=== PATIENT | female | born 1945 | race Caucasian/White ===

== ENCOUNTER 2017-03-25 12:14 | Inpatient (IN) | payer OTHER, MEDICARE ==
[2017-03-25 12:23] VITALS: BMI 24.7
--- NOTE | 2017-03-25 12:30 | DR.GENAD ---
HPI - PCP Primary Care Physician: MORENA Jin FNP - HPI Comment HPI Comment: PATIENT HAVE ABDOMINAL PAIN FOR SEVERAL MONTHS. GOT WORSE. PCP OFFICE TOOK XRAY. IT WAS ABNORMAL. HERE FOR FURTHER EVALUATION. HAVE LOW GRADE FEVER. LOWER BACK PAIN ALSO REPORTED. - Complaint/Symptoms Chief Complaint Doctors Comments: ABDOMINAL PAIN. Chief Complaint:: PT STATES " MORENA Jin CALLED HER AND TOLD HER TO COME TO ER AND BE EVALUATED DUE TO HER XRAY REPORT". Self Treatment fo Chief Complaint: PT STATES "I HAS BEEN BATTLING CONSTIPATION SINCE APRIL AND PT WAS PLACED ON MEDS FOR THIS.. AND THAT PATRICIA TOLD ME I MIGHT HAVE A BLOCKAGE ". - Nurses notes reviewed Nurses Notes Review: Yes - Source History Provided: Patient - Mode of Arrival Mode of Arrival: Ambulatory - Timing Onset of Chief Complaint: 12/16/16 Came on: Suddenly - Duration Duration: Constant Duration: Days - Severity Severity: Moderate PMH - PMH Past Medical History: Yes Past Medical History: Dyslipidemia, Hypertension Past Surgical History: Yes Past Surgical History Comment: SPLEENECTOMY. - Family History History of Family Medical Conditions: No - Social History Does patient currently use any type of tobacco product: No Have you used tobacco products in the last 12 months: No Type of Tobacco Use: None Does any household member use tobacco: No Alcohol Use: None Do you use any recreational Drugs:: No Lives With: Family Lives Where: Home - infectious screening In the last 2 months have you had wt loss of >10#?: NO Have you had fever, night sweats or hemotysis?: No Have you traveled outside the country in the last 6 months?: No Isolation: Standard ROS - Review of Systems Constitutional: Chills, Weakness, Fatigue. negative: Diaphoresis, Fever Eyes: No Symptoms Reported ENTM: No Symptoms Reported Respiratoy: No Symptoms Reported Cardiovascular: No Symptoms Reported Gastrointestinal/Abdominal: Abdominal Pain, Constipation, Nausea Neurological: No Symptoms Reported Musculoskeletal: No Symptoms Reported Integumentary: No Symptoms Reported Hematologic/Lymphatic: No Symptoms Reported Endocrine: No Symptoms Reported All Other Systems: Reviewed and Negative PE - Vital Signs Vitals: Temperature 97.9 F Pulse Rate 88 Respiratory Rate 20 Blood Pressure 126/63 O2 Sat by Pulse Oximetry 93 - General Limitations: No Limitations General Appearance: Alert - Head Head Exam: Normal Inspection - Eyes Eye exam: Normal Appearance ( ), PERRL, EOMI - ENT ENT Exam: Normal External Ear Exam TM/Canal Exam: Bilateral Normal Nose Exam: Normal Nose Exam Mouth Exam: Normal Inspection Throat Exam: Normal Inspection - Neck Neck Exam: Trachea Midline - Chest Chest Inspection: Symmetric Chest Wall Rise - Respiratory Respiratory Exam: Normal Lung Sounds Bilat Respiratory Exam: Bilateral Clear to Auscultation - Cardiovascular Cardiovascular Exam: Normal Rhythm - Abdominal Exam Abdominal Exam: Normal Bowel Sounds Abdominal Tenderness: Diffuse, Moderate - Extremities Extremities Exam: Edema - Back Back Exam: Normal Inspection, (R) CVA Tenderness - Neurologic Neurological Exam: Alert, Oriented X3 - Psychiatric Psychiatric Exam: Normal Affect, Normal Mood - Skin Skin Exam: Normal Color MDM - Additional Information Findings: ABDOMINAL PAIN, BOWEL OBSTRUCTION, UTI, KIDNEY STONE, DIVERTICULITIS Course - Treatment Treatment: SEE ORDERS. - Consultation Consultation Comments: DISCUSS PATIENT WITH DR. WINKLER. HE WILL ADMIT PATIENT. - Education/Counseling Education/Counseling: Patient, Family, Education Educated On: Treatment, Diagnosis, Needs for Follow Up ROR - Labs Reviewed Laboratory Results Reviewed?: Yes Result Diagrams: 03/26/17 04:05 03/26/17 04:05 Laboratory: WBC 9.8 X10^3/uL (3.6-10.0) 03/25/17 12:52 RBC 4.55 X10^6/uL (3.5-5.4) 03/25/17 12:52 Hgb 13.1 g/dL (12.0-16.0) 03/25/17 12:52 Hct 38.3 % (36.0-47.0) 03/25/17 12:52 MCV 84.2 fL (80.0-100.0) 03/25/17 12:52 MCH 28.7 pg (27.0-34.0) 03/25/17 12:52 MCHC 34.1 g/dL (33.0-35.0) 03/25/17 12:52 RDW 13.1 % (11.6-16.5) 03/25/17 12:52 Plt Count 580 X10^3/uL (150.0-450.0) H 03/25/17 12:52 MPV 9.4 fL (7.4-11.0) 03/25/17 12:52 Neut % 67.1 % (42.0-75.0) 03/25/17 12:52 Lymph % 17.5 % (21.0-51.0) L 03/25/17 12:52 [place] % 13.4 % (0.0-13.0) H 03/25/17 12:52 Eos % 1.2 % (0.9-2.9) 03/25/17 12:52 Baso % 0.8 % (0.2-1.0) 03/25/17 12:52 Neut # 6.6 x10^3/uL (2.2-4.8) H 03/25/17 12:52 Lymph # 1.7 X10^3/uL (1.3-2.9) 03/25/17 12:52 [place] # 1.3 x10^3/uL (0.3-0.8) H 03/25/17 12:52 Eos # 0.1 x10^3/uL (0.0-0.2) 03/25/17 12:52 Baso # 0.1 X10^3/uL (0.0-0.1) 03/25/17 12:52 Absolute Nucleated RBC 0.1 /100WBC 03/25/17 12:52 Sodium 139 mmol/L (136-145) 03/25/17 12:52 Corrected Sodium 140 mmol/L (136-145) 03/25/17 12:52 Potassium 3.1 mmol/L (3.5-5.1) L 03/25/17 12:52 Chloride 102 mmol/L (98-107) 03/25/17 12:52 Carbon Dioxide 29.3 mmol/L (21-32) 03/25/17 12:52 BUN 22 mg/dL (7-18) H 03/25/17 12:52 Creatinine 1.26 mg/dL (0.55-1.02) H 03/25/17 12:52 Est GFR (MDRD) Af Amer 54 (>60) L 03/25/17 12:52 Est GFR (MDRD) Non-Af 44 (>60) L 03/25/17 12:52 Glucose 126 mg/dL (65-99) H 03/25/17 12:52 Calcium 9.3 mg/dL (8.5-10.1) 03/25/17 12:52 Corrected Calcium TNP 03/25/17 12:52 Total Bilirubin 0.30 mg/dL (0.2-1.0) 03/25/17 12:52 AST 27 Units/L (15-37) 03/25/17 12:52 ALT 27 Units/L (12-78) 03/25/17 12:52 Alkaline Phosphatase 73 Units/L (46-116) 03/25/17 12:52 Total Protein 7.5 g/dL (6.4-8.2) 03/25/17 12:52 Albumin 3.4 g/dL (3.4-5.0) 03/25/17 12:52 Globulin 4.1 g/dL (2.5-4.5) 03/25/17 12:52 Albumin/Globulin Ratio 0.8 Ratio (1.1-2.1) L 03/25/17 12:52 Amylase 35 Units/L (25-115) 03/25/17 12:52 Lipase 185 Units/L (73-393) 03/25/17 12:52 H. pylori IgG Antibody Positive (NEGATIVE) A 03/25/17 12:52 - XRAY XRAY Findings: REPORT DISCUSS WITH PATIENT. - Diagnosis Discharge Problem: Partial small bowel obstruction Abdominal pain Qualifiers: Abdominal location: generalized Qualified Code(s): R10.84 - Generalized abdominal pain - Discharge Plan Disposition: ADMITTED INPATIENT Condition: Stable - Follow ups/Referrals - Instructions
[2017-03-25] MEDS ORDERED: NS 1000 ML 1,000 ML ONE ×2 (12:53→15:33)
[2017-03-25] MEDS ORDERED: NS 1000 ML 1,000 ML IV SCH ×2 (13:00→15:00)
[2017-03-25 13:01] LABS: BASOPHILS # (AUTO) 0.1 X10^3/uL (0.0-0.1); BASOPHILS % (AUTO) 0.8 % (0.2-1.0); EOSINOPHILS # (AUTO) 0.1 x10^3/uL (0.0-0.2); EOSINOPHILS % (AUTO) 1.2 % (0.9-2.9); HEMATOCRIT 38.3 % (36.0-47.0); HEMOGLOBIN 13.1 g/dL (12.0-16.0); LYMPHOCYTES # (AUTO) 1.7 X10^3/uL (1.3-2.9); LYMPHOCYTES % (AUTO) 17.5 % (21.0-51.0); MEAN CORPUSCULAR HEMOGLOBIN 28.7 pg (27.0-34.0); MEAN CORPUSCULAR HGB CONC 34.1 g/dL (33.0-35.0); MEAN CORPUSCULAR VOLUME 84.2 fL (80.0-100.0); MEAN PLATELET VOLUME 9.4 fL (7.4-11.0); MONOCYTES # (AUTO) 1.3 x10^3/uL (0.3-0.8); MONOCYTES % (AUTO) 13.4 % (0.0-13.0); NEUTROPHILS # (AUTO) 6.6 x10^3/uL (2.2-4.8); NEUTROPHILS % (AUTO) 67.1 % (42.0-75.0); PLATELET COUNT 580 X10^3/uL (150.0-450.0); RED BLOOD COUNT 4.55 X10^6/uL (3.5-5.4); RED CELL DISTRIBUTION WIDTH 13.1 % (11.6-16.5); WHITE BLOOD COUNT 9.8 X10^3/uL (3.6-10.0)
[2017-03-25 13:11] LABS: ALANINE AMINOTRANSFERASE 27 Units/L (12-78); ALBUMIN 3.4 g/dL (3.4-5.0); ALKALINE PHOSPHATASE 73 Units/L (46-116); AMYLASE 35 Units/L (25-115); ASPARTATE AMINO TRANSFERASE 27 Units/L (15-37); BLOOD UREA NITROGEN 22 mg/dL (7-18); CALCIUM 9.3 mg/dL (8.5-10.1); CARBON DIOXIDE 29.3 mmol/L (21-32); CHLORIDE 102 mmol/L (98-107); COR NA(FOR HYPERGLY) 140 mmol/L (136-145); CREATININE 1.26 mg/dL (0.55-1.02); LIPASE 185 Units/L (73-393); SODIUM 139 mmol/L (136-145); TOTAL PROTEIN 7.5 g/dL (6.4-8.2); eGFR BLACK RACES 54 (>60); eGFR NON BLACK RACES 44 (>60)
--- NOTE | 2017-03-25 13:51 | CT ---
History: Abdominal pain and distention with nausea and vomiting for 3 days Study: CT of the abdomen and pelvis without contrast. Sagittal and coronal reformations were provided . Comparison: None Findings: The visualized lung bases are grossly clear of disease. The spleen and gallbladder are surg ically absent. The liver and pancreas and kidneys and adrenal glands are unremarkable. No adenopathy or significant free fluid is demonstrated. The colon is full of fecal material. There is mild diffuse gaseous distention of small bowel up to 3 cm. Distal ileum is small in caliber. There is no free air . There is severe degenerative changes in the lumbar spine diffusely and there is prominent posterior ridging at L1-2. There is pectus excavatum. The uterus is apparently surgically absent. Impression: Findings suggest distal partial small bowel obstruction Reported By:
[2017-03-25] MEDS ORDERED: NS + KCL 20 MEQ/L 1,000 ML IV SCH (14:00)
[2017-03-25] MEDS ORDERED: DEMEROL INJ IVP ONE (14:33)
[2017-03-25] MEDS ORDERED: ZOFRAN INJ 4 MG VIAL IVP ONE (14:37)
[2017-03-25] MEDS ORDERED: DEMEROL INJ ONE (14:38)
[2017-03-25] MEDS ORDERED: ZOFRAN INJ 4 MG VIAL ONE (14:38)
[2017-03-25 15:11] LABS: BILIRUBIN,URINE 1+ (NEGATIVE); BLOOD/HEMOGLOBIN,URINE 1+ (NEGATIVE); GLUCOSE, URINE NEGATIVE (NEGATIVE); KETONES,URINE NEGATIVE (NEGATIVE); LEUKOCYTE ESTERASE ,URINE 1+ (NEGATIVE); NITRITES,URINE POSITIVE (NEGATIVE); PROTEIN,URINE 1+ (NEGATIVE); UROBILINOGEN,URINE 2+ (NORMAL)
[2017-03-25] MEDS ORDERED: PEPCID 20 MG IV PREMIX* 20 MG/50 ML BAG IV ONE ×2 (15:19→15:47)
[2017-03-25 15:25] LABS: APPEARANCE,URINE HAZY (CLEAR); BACTERIA,URINE 3+ /HPF (NEGATIVE); COLOR,URINE YELLOW (YELLOW); SQUAMOUS EPITHELIAL CELL,UR RARE /HPF (NEGATIVE)
--- NOTE | 2017-03-25 15:43 | RAD ---
HISTORY: NG tube placement. Study: KUB. Comparison: CT abdomen/pelvis dated same day. Findings: Interval placement of a nasogastric tube whose tip overlies the expected area of the stomach. Bowel g as pattern appears unchanged given technique. No obvious free air. No pathological soft tissue mass o r calcification can be observed. The bony structures are grossly intact. IMPRESSION: 1. NG tube that appears to be in good position. 2. No significant change in bowel gas pattern. Reported By:
[2017-03-25] MEDS ORDERED: LEVAQUIN PREMIX IV 500 MG 500 MG/100 ML BAG IV ONE (15:54)
[2017-03-25] MEDS ORDERED: LEVAQUIN PREMIX IV 500 MG 500 MG/100 ML BAG IV SCH (16:00)
[2017-03-25] MEDS ORDERED: LEVAQUIN TAB 500 MG PO SCH (16:00)
[2017-03-25] MEDS: DEMEROL INJ IVP PRN (18:33)
[2017-03-25] MEDS: PHENERGAN INJ 25 MG IVP PRN (18:40)
[2017-03-25] MEDS: PEPCID 20 MG IV PREMIX* 20 MG/50 ML BAG IV SCH (20:34)
[2017-03-26] MEDS: NS 1000 ML 1,000 ML IV SCH ×2 (00:26→04:41)
[2017-03-26] MEDS: DEMEROL INJ IVP PRN ×4 (04:45→23:04)
[2017-03-26] MEDS: PHENERGAN INJ 25 MG IVP PRN ×3 (04:46→17:57)
[2017-03-26 05:35] LABS: BASOPHILS % (AUTO) 0.4 % (0.2-1.0); EOSINOPHILS # (AUTO) 0.2 x10^3/uL (0.0-0.2); EOSINOPHILS % (AUTO) 1.7 % (0.9-2.9); HEMATOCRIT 34.3 % (36.0-47.0); HEMOGLOBIN 11.5 g/dL (12.0-16.0); LYMPHOCYTES # (AUTO) 1.9 X10^3/uL (1.3-2.9); LYMPHOCYTES % (AUTO) 15.8 % (21.0-51.0); MEAN CORPUSCULAR HEMOGLOBIN 28.3 pg (27.0-34.0); MEAN CORPUSCULAR HGB CONC 33.5 g/dL (33.0-35.0); MEAN CORPUSCULAR VOLUME 84.5 fL (80.0-100.0); MONOCYTES # (AUTO) 1.3 x10^3/uL (0.3-0.8); MONOCYTES % (AUTO) 10.6 % (0.0-13.0); NEUTROPHILS # (AUTO) 8.6 x10^3/uL (2.2-4.8); NEUTROPHILS % (AUTO) 71.5 % (42.0-75.0); PLATELET COUNT 523 X10^3/uL (150.0-450.0); RED BLOOD COUNT 4.05 X10^6/uL (3.5-5.4); RED CELL DISTRIBUTION WIDTH 13.1 % (11.6-16.5)
[2017-03-26 05:42] LABS: ALANINE AMINOTRANSFERASE 20 Units/L (12-78); ALBUMIN 2.7 g/dL (3.4-5.0); ALKALINE PHOSPHATASE 58 Units/L (46-116); ASPARTATE AMINO TRANSFERASE 17 Units/L (15-37); BLOOD UREA NITROGEN 18 mg/dL (7-18); CALCIUM 8.2 mg/dL (8.5-10.1); CARBON DIOXIDE 23.9 mmol/L (21-32); CHLORIDE 108 mmol/L (98-107); COR CA(FOR HYPOALB) 9.2 mg/dL (8.5-10.1); CREATININE 0.92 mg/dL (0.55-1.02); SODIUM 142 mmol/L (136-145); TOTAL PROTEIN 5.9 g/dL (6.4-8.2); eGFR BLACK RACES > 60 (>60); eGFR NON BLACK RACES > 60 (>60)
[2017-03-26] MEDS ORDERED: POTASSIUM CHL 40 MEQ/NS 0.45% 500 ML IV PRN (07:52)
[2017-03-26] MEDS ORDERED: POTASSIUM CHLORIDE LIQ 20 MEQ UDC PO PRN (07:52)
[2017-03-26] MEDS ORDERED: POTASSIUM CHL 60 MEQ/NS 0.45% 500 ML IV PRN (07:52)
[2017-03-26] MEDS ORDERED: K-LYTE EFFERVESCENT PO PRN (07:52)
[2017-03-26] MEDS: PEPCID 20 MG IV PREMIX* 20 MG/50 ML BAG IV SCH ×2 (08:13→20:40)
[2017-03-26] MEDS: MAGNESIUM SULFATE 1 GM/100 mL PREMIX 1 GM/100 ML BAG IV PRN ×2 (09:32→10:44)
[2017-03-26] MEDS: CIPRO IV 400 MG PREMIX* 400 MG/200 ML IV.SOLN. IV SCH ×2 (11:57→20:40)
--- NOTE | 2017-03-26 15:33 | DR.UPDATE ---
H&P Update History and Physical Update: History and Physical reviewed and patient examined. H&P COMPLETED ON 03/25/2017 WITHOUT CHANGE Changes noted: NO Yes with the following:
--- NOTE | 2017-03-26 15:36 | PCM.PROG ---
Progress Note - Progress Note for Day of Date: 03/26/17 - Subjective Subjective: patient is a 71-year-old white female who is admitted late yesterday evening with a small bowel obstruction. Patient has NG tube at low intermittent suction. Patient continues to complain of abdominal pain and nausea. Plan to continue nothing by mouth status continue with NG tube, pain and nausea control, PPI therapy,, repeat a.m. labs and abdomen series - Past Medical Family Social History Past Med/Fam/Surg Hx: No changes since H&P Allergies: Allergies codeine Allergy (Verified 03/25/17 12:16) penicillin G Allergy (Verified 03/25/17 12:16) - Review of Systems ROS: No change since H&P - Vital Signs and I&O's Vital Signs: Temperature 98.1 F Pulse Rate [Left] 96 Pulse Rate [Right Brachial] 73 Pulse Rate 88 Respiratory Rate 18 Blood Pressure [Left Arm] 149/70 Blood Pressure 126/63 O2 Sat by Pulse Oximetry 96 Intake and Output: Intake & Output 03/24/17 03/25/17 03/26/17 03/27/17 11:59 11:59 11:59 11:59 Intake Total 480 Balance 480 - Physical Exam Oriented: Normal Eyes: Normal Ear: Normal Throat: Normal Respiratory: Normal Cardiovascular: Normal Auscultation: Bowel Sounds: Decreased Tenderness: Diffuse Skin: Decreased Turgur Musculoskeletal: Normal Affect: Anxious Speech Pattern: Clear, Appropriate - Laboratory and Diagnostics Result Diagrams: 03/26/17 04:05 03/26/17 04:05 Labs: 03/25/17 14:46 Urine,Clean Catch Urine Culture - Preliminary Laboratory WBC 12.0 X10^3/uL (3.6-10.0) H 03/26/17 04:05 RBC 4.05 X10^6/uL (3.5-5.4) 03/26/17 04:05 Hgb 11.5 g/dL (12.0-16.0) L 03/26/17 04:05 Hct 34.3 % (36.0-47.0) L 03/26/17 04:05 MCV 84.5 fL (80.0-100.0) 03/26/17 04:05 MCH 28.3 pg (27.0-34.0) 03/26/17 04:05 MCHC 33.5 g/dL (33.0-35.0) 03/26/17 04:05 RDW 13.1 % (11.6-16.5) 03/26/17 04:05 Plt Count 523 X10^3/uL (150.0-450.0) H 03/26/17 04:05 MPV 10.0 fL (7.4-11.0) 03/26/17 04:05 Neut % 71.5 % (42.0-75.0) 03/26/17 04:05 Lymph % 15.8 % (21.0-51.0) L 03/26/17 04:05 [place] % 10.6 % (0.0-13.0) 03/26/17 04:05 Eos % 1.7 % (0.9-2.9) 03/26/17 04:05 Baso % 0.4 % (0.2-1.0) 03/26/17 04:05 Neut # 8.6 x10^3/uL (2.2-4.8) H 03/26/17 04:05 Lymph # 1.9 X10^3/uL (1.3-2.9) 03/26/17 04:05 [place] # 1.3 x10^3/uL (0.3-0.8) H 03/26/17 04:05 Eos # 0.2 x10^3/uL (0.0-0.2) 03/26/17 04:05 Baso # 0.0 X10^3/uL (0.0-0.1) 03/26/17 04:05 Absolute Nucleated RBC 0.1 /100WBC 03/26/17 04:05 Sodium 142 mmol/L (136-145) 03/26/17 04:05 Corrected Sodium TNP 03/26/17 04:05 Potassium 3.3 mmol/L (3.5-5.1) L 03/26/17 04:05 Chloride 108 mmol/L (98-107) H 03/26/17 04:05 Carbon Dioxide 23.9 mmol/L (21-32) 03/26/17 04:05 BUN 18 mg/dL (7-18) 03/26/17 04:05 Creatinine 0.92 mg/dL (0.55-1.02) 03/26/17 04:05 Est GFR (MDRD) Af Amer > 60 (>60) 03/26/17 04:05 Est GFR (MDRD) Non-Af > 60 (>60) 03/26/17 04:05 Glucose 86 mg/dL (65-99) 03/26/17 04:05 Calcium 8.2 mg/dL (8.5-10.1) L 03/26/17 04:05 Corrected Calcium 9.2 mg/dL (8.5-10.1) 03/26/17 04:05 Magnesium 1.7 mg/dL (1.7-2.9) 03/26/17 04:05 Total Bilirubin 0.40 mg/dL (0.2-1.0) 03/26/17 04:05 AST 17 Units/L (15-37) 03/26/17 04:05 ALT 20 Units/L (12-78) 03/26/17 04:05 Alkaline Phosphatase 58 Units/L (46-116) 03/26/17 04:05 Total Protein 5.9 g/dL (6.4-8.2) L 03/26/17 04:05 Albumin 2.7 g/dL (3.4-5.0) L 03/26/17 04:05 Globulin 3.2 g/dL (2.5-4.5) 03/26/17 04:05 Albumin/Globulin Ratio 0.8 Ratio (1.1-2.1) L 03/26/17 04:05 Amylase 35 Units/L (25-115) 03/25/17 12:52 Lipase 185 Units/L (73-393) 03/25/17 12:52 Specimen Type Clean catch urine 03/25/17 14:46 Urine Color Yellow (YELLOW) 03/25/17 14:46 Urine Appearance Hazy (CLEAR) 03/25/17 14:46 Urine pH 8.0 (5.0 - 8.0) 03/25/17 14:46 Ur Specific [place] 1.015 (1.000-1.030) 03/25/17 14:46 Urine Protein 1+ (NEGATIVE) 03/25/17 14:46 Urine Glucose (UA) Negative (NEGATIVE) 03/25/17 14:46 Urine Ketones Negative (NEGATIVE) 03/25/17 14:46 Urine Occult Blood 1+ (NEGATIVE) 03/25/17 14:46 Urine Nitrite Positive (NEGATIVE) 03/25/17 14:46 Urine Bilirubin 1+ (NEGATIVE) 03/25/17 14:46 Urine Urobilinogen 2+ (NORMAL) 03/25/17 14:46 Ur Leukocyte Esterase 1+ (NEGATIVE) 03/25/17 14:46 Urine RBC 3-5 /HPF (NEGATIVE) 03/25/17 14:46 Urine WBC 10-12 /HPF (NEGATIVE) 03/25/17 14:46 Ur Squamous Epith Cells Rare /HPF (NEGATIVE) 03/25/17 14:46 Urine Bacteria 3+ /HPF (NEGATIVE) 03/25/17 14:46 Ur Culture Indicated? Yes/culture set up 03/25/17 14:46 H. pylori IgG Antibody Positive (NEGATIVE) A 03/25/17 12:52 - Plan (1) Partial small bowel obstruction Status: Acute Plan: NPO, NG AT LIS, PAIN AND NAUSEA CONTROL. REPEAT AM LABS, IV HYDRATION. ABD SERIES Q AM. TREATMENT OF COLONIC CONSTIPATION WITH ENEMA (2) Hypertension Status: Acute (3) Hyperlipidemia Status: Acute
[2017-03-27] MEDS: NS 1000 ML 1,000 ML IV SCH ×5 (03:56→17:23)
[2017-03-27] MEDS: DEMEROL INJ IVP PRN ×2 (05:28→20:39)
[2017-03-27] MEDS: PHENERGAN INJ 25 MG IVP PRN ×2 (05:29→14:56)
--- NOTE | 2017-03-27 05:32 | RAD ---
Acute abdominal series Indication: Small bowel obstruction Comparison: 03/25/2017 Findings: Ill-defined haziness of the medial right lung base is likely artifactual related to pectus excavatum deformity seen on CT. There is mild left basilar scarring. No dense infiltrates or signific ant pleural effusion. Normal heart size. There is satisfactory positioning of the gastric tube. Gas and fecal material is present within the n ormal caliber colon. There is minimal dilatation of some small bowel loops, improved from prior. No e vidence for free air. Impression: Improving low-grade distal small bowel obstruction. NG tube in satisfactory position. Reported By:
[2017-03-27 06:13] LABS: BASOPHILS # (AUTO) 0.1 X10^3/uL (0.0-0.1); BASOPHILS % (AUTO) 0.6 % (0.2-1.0); EOSINOPHILS # (AUTO) 0.3 x10^3/uL (0.0-0.2); EOSINOPHILS % (AUTO) 2.5 % (0.9-2.9); HEMATOCRIT 33.3 % (36.0-47.0); HEMOGLOBIN 11.1 g/dL (12.0-16.0); LYMPHOCYTES # (AUTO) 2.3 X10^3/uL (1.3-2.9); LYMPHOCYTES % (AUTO) 17.4 % (21.0-51.0); MEAN CORPUSCULAR HEMOGLOBIN 28.5 pg (27.0-34.0); MEAN CORPUSCULAR HGB CONC 33.3 g/dL (33.0-35.0); MEAN CORPUSCULAR VOLUME 85.5 fL (80.0-100.0); MEAN PLATELET VOLUME 10.1 fL (7.4-11.0); MONOCYTES # (AUTO) 1.5 x10^3/uL (0.3-0.8); MONOCYTES % (AUTO) 11.2 % (0.0-13.0); NEUTROPHILS % (AUTO) 68.3 % (42.0-75.0); PLATELET COUNT 472 X10^3/uL (150.0-450.0); RED BLOOD COUNT 3.89 X10^6/uL (3.5-5.4); RED CELL DISTRIBUTION WIDTH 13.5 % (11.6-16.5); WHITE BLOOD COUNT 13.2 X10^3/uL (3.6-10.0)
[2017-03-27 06:34] LABS: ALANINE AMINOTRANSFERASE 18 Units/L (12-78); ALBUMIN 2.6 g/dL (3.4-5.0); ALKALINE PHOSPHATASE 59 Units/L (46-116); ASPARTATE AMINO TRANSFERASE 15 Units/L (15-37); BLOOD UREA NITROGEN 13 mg/dL (7-18); CARBON DIOXIDE 19.9 mmol/L (21-32); CHLORIDE 106 mmol/L (98-107); COR CA(FOR HYPOALB) 9.1 mg/dL (8.5-10.1); CREATININE 0.64 mg/dL (0.55-1.02); MAGNESIUM 1.7 mg/dL (1.7-2.9); SODIUM 138 mmol/L (136-145); TOTAL PROTEIN 5.8 g/dL (6.4-8.2); eGFR BLACK RACES > 60 (>60); eGFR NON BLACK RACES > 60 (>60)
[2017-03-27] MEDS: PEPCID 20 MG IV PREMIX* 20 MG/50 ML BAG IV SCH ×2 (08:56→20:39)
[2017-03-27] MEDS: CIPRO IV 400 MG PREMIX* 400 MG/200 ML IV.SOLN. IV SCH ×2 (08:56→20:38)
[2017-03-27] MEDS ORDERED: DULCOLAX SUPPOSITORY 10 MG RECTAL ONE (11:19)
[2017-03-27] MEDS: ZOFRAN INJ 4 MG VIAL IVP PRN (13:14)
[2017-03-27] MEDS ORDERED: DULCOLAX SUPPOSITORY 10 MG ONE (14:41)
[2017-03-27] MEDS: ZESTRIL TAB 40 MG PO SCH (14:45)
[2017-03-27] MEDS: ZITHROMAX INJ 500 MG VIAL 500 MG in NS 250 ML IV 250 ML IV SCH (14:45)
[2017-03-27] MEDS: LOPRESSOR TAB 50 MG PO SCH ×2 (14:45→20:40)
[2017-03-27] MEDS: PriLOSEC PO SCH (14:45)
[2017-03-27] MEDS: NORVASC TAB 5 MG PO SCH (14:45)
[2017-03-28] MEDS: PHENERGAN INJ 25 MG IVP PRN ×2 (01:00→09:15)
[2017-03-28] MEDS: NS 1000 ML 1,000 ML IV SCH ×2 (03:18→10:01)
[2017-03-28 04:48] LABS: ALANINE AMINOTRANSFERASE 14 Units/L (12-78); ALBUMIN 2.3 g/dL (3.4-5.0); ALKALINE PHOSPHATASE 54 Units/L (46-116); ASPARTATE AMINO TRANSFERASE 18 Units/L (15-37); BLOOD UREA NITROGEN 8 mg/dL (7-18); CALCIUM 7.8 mg/dL (8.5-10.1); CARBON DIOXIDE 21.2 mmol/L (21-32); CHLORIDE 107 mmol/L (98-107); COR CA(FOR HYPOALB) 9.2 mg/dL (8.5-10.1); CREATININE 0.63 mg/dL (0.55-1.02); SODIUM 143 mmol/L (136-145); TOTAL PROTEIN 5.5 g/dL (6.4-8.2); eGFR BLACK RACES > 60 (>60); eGFR NON BLACK RACES > 60 (>60)
[2017-03-28 05:06] LABS: BASOPHILS # (AUTO) 0.1 X10^3/uL (0.0-0.1); BASOPHILS % (AUTO) 0.8 % (0.2-1.0); EOSINOPHILS # (AUTO) 0.3 x10^3/uL (0.0-0.2); EOSINOPHILS % (AUTO) 2.8 % (0.9-2.9); HEMATOCRIT 32.4 % (36.0-47.0); HEMOGLOBIN 10.8 g/dL (12.0-16.0); LYMPHOCYTES # (AUTO) 1.6 X10^3/uL (1.3-2.9); LYMPHOCYTES % (AUTO) 12.6 % (21.0-51.0); MEAN CORPUSCULAR HEMOGLOBIN 28.4 pg (27.0-34.0); MEAN CORPUSCULAR HGB CONC 33.4 g/dL (33.0-35.0); MEAN CORPUSCULAR VOLUME 85.2 fL (80.0-100.0); MEAN PLATELET VOLUME 10.2 fL (7.4-11.0); MONOCYTES # (AUTO) 1.7 x10^3/uL (0.3-0.8); MONOCYTES % (AUTO) 13.2 % (0.0-13.0); NEUTROPHILS # (AUTO) 8.9 x10^3/uL (2.2-4.8); NEUTROPHILS % (AUTO) 70.6 % (42.0-75.0); PLATELET COUNT 471 X10^3/uL (150.0-450.0); RED CELL DISTRIBUTION WIDTH 13.1 % (11.6-16.5); WHITE BLOOD COUNT 12.6 X10^3/uL (3.6-10.0)
[2017-03-28] MEDS: K-RIDER 10 MEQ/NS 100 ML 10 MEQ/100 ML BAG IV PRN ×3 (06:40→10:47)
--- NOTE | 2017-03-28 07:52 | RAD ---
1 Examination: KUB History: Small bowel obstruction Comparison reference 03/27/2017 Findings: There is decreasing intestinal distention. There is no major small bowel dilatation now angel ntified. There is residual fecal distention of the colon. Nasogastric tube remains in mid stomach. Impression: No definite evidence for small bowel obstruction now identified. See above. Reported By:
[2017-03-28] MEDS: PEPCID 20 MG IV PREMIX* 20 MG/50 ML BAG IV SCH ×2 (08:59→22:15)
[2017-03-28] MEDS ORDERED: OMEPRAZOLE PO SCH (09:00)
[2017-03-28] MEDS: PriLOSEC PO SCH (09:11)
[2017-03-28] MEDS: LOPRESSOR TAB 50 MG PO SCH ×2 (09:12→21:13)
[2017-03-28] MEDS: ZESTRIL TAB 40 MG PO SCH (09:12)
[2017-03-28] MEDS: NORVASC TAB 5 MG PO SCH (09:12)
[2017-03-28] MEDS: CIPRO IV 400 MG PREMIX* 400 MG/200 ML IV.SOLN. IV SCH ×2 (10:01→21:15)
[2017-03-28] MEDS: ESTRADIOL TOP SCH (10:04)
[2017-03-28] MEDS: ZITHROMAX INJ 500 MG VIAL 500 MG in NS 250 ML IV 250 ML IV SCH (12:09)
[2017-03-28] MEDS ORDERED: COLACE CAP 100 MG PO PRN (18:46)
[2017-03-28] MEDS ORDERED: RESTORIL CAP 15 MG PO PRN (18:46)
[2017-03-29 06:24] LABS: BASOPHILS # (AUTO) 0.1 X10^3/uL (0.0-0.1); BASOPHILS % (AUTO) 0.8 % (0.2-1.0); EOSINOPHILS # (AUTO) 0.6 x10^3/uL (0.0-0.2); EOSINOPHILS % (AUTO) 5.6 % (0.9-2.9); HEMATOCRIT 32.5 % (36.0-47.0); LYMPHOCYTES # (AUTO) 1.9 X10^3/uL (1.3-2.9); LYMPHOCYTES % (AUTO) 17.1 % (21.0-51.0); MEAN CORPUSCULAR HEMOGLOBIN 28.5 pg (27.0-34.0); MEAN CORPUSCULAR HGB CONC 33.9 g/dL (33.0-35.0); MEAN CORPUSCULAR VOLUME 83.9 fL (80.0-100.0); MEAN PLATELET VOLUME 10.2 fL (7.4-11.0); MONOCYTES # (AUTO) 1.5 x10^3/uL (0.3-0.8); MONOCYTES % (AUTO) 13.6 % (0.0-13.0); NEUTROPHILS # (AUTO) 7.1 x10^3/uL (2.2-4.8); NEUTROPHILS % (AUTO) 62.9 % (42.0-75.0); PLATELET COUNT 491 X10^3/uL (150.0-450.0); RED BLOOD COUNT 3.87 X10^6/uL (3.5-5.4); RED CELL DISTRIBUTION WIDTH 13.6 % (11.6-16.5); WHITE BLOOD COUNT 11.3 X10^3/uL (3.6-10.0)
[2017-03-29 06:35] LABS: ALANINE AMINOTRANSFERASE 17 Units/L (12-78); ALBUMIN 2.5 g/dL (3.4-5.0); ALKALINE PHOSPHATASE 56 Units/L (46-116); ASPARTATE AMINO TRANSFERASE 19 Units/L (15-37); BLOOD UREA NITROGEN 10 mg/dL (7-18); CALCIUM 8.1 mg/dL (8.5-10.1); CARBON DIOXIDE 20.1 mmol/L (21-32); CHLORIDE 107 mmol/L (98-107); COR CA(FOR HYPOALB) 9.3 mg/dL (8.5-10.1); CREATININE 0.48 mg/dL (0.55-1.02); SODIUM 141 mmol/L (136-145); TOTAL PROTEIN 5.7 g/dL (6.4-8.2); eGFR BLACK RACES > 60 (>60); eGFR NON BLACK RACES > 60 (>60)
--- NOTE | 2017-03-29 08:02 | RAD ---
Examination: Portable KUB History: Small bowel obstruction Comparison reference 03/28/2017 Findings: There is again noted fecal distention of the left colon. There is no significant small nicho l distention identified. No evidence for pneumatosis, ascites or developing mass. The nasogastric tub e is no longer seen. Impression: Mild colon distention, rule out constipation. No definite small bowel obstruction suggest ed. Apparent interval removal of NG tube; correlate clinically. Reported By:
[2017-03-29] MEDS: ZOFRAN INJ 4 MG VIAL IVP PRN (09:15)
[2017-03-29] MEDS: ZITHROMAX INJ 500 MG VIAL 500 MG in NS 250 ML IV 250 ML IV SCH (09:59)
[2017-03-29] MEDS: PEPCID 20 MG IV PREMIX* 20 MG/50 ML BAG IV SCH ×2 (09:59→21:23)
[2017-03-29] MEDS: ZESTRIL TAB 40 MG PO SCH (10:00)
[2017-03-29] MEDS: CIPRO IV 400 MG PREMIX* 400 MG/200 ML IV.SOLN. IV SCH ×2 (10:00→21:24)
[2017-03-29] MEDS: LOPRESSOR TAB 50 MG PO SCH ×2 (10:00→21:24)
[2017-03-29] MEDS: PriLOSEC PO SCH (10:00)
[2017-03-29] MEDS: NORVASC TAB 5 MG PO SCH (10:00)
[2017-03-29] MEDS: ESTRADIOL TOP SCH (10:00)
[2017-03-29] MEDS ORDERED: NS 250 ML IV 250 ML IV ONE (10:26)
[2017-03-29] MEDS ORDERED: MAALOX or MYLANTA PO PRN (16:53)
[2017-03-29] MEDS: NS 1000 ML 1,000 ML IV SCH (16:53)
[2017-03-29 18:30] LABS: MAGNESIUM 1.4 mg/dL (1.7-2.9)
[2017-03-29] MEDS: MAG-OX TAB PO PRN ×2 (18:44→23:40)
[2017-03-30] MEDS: NS 1000 ML 1,000 ML IV SCH ×4 (06:05→16:08)
[2017-03-30 06:27] LABS: BASOPHILS # (AUTO) 0.1 X10^3/uL (0.0-0.1); BASOPHILS % (AUTO) 0.7 % (0.2-1.0); EOSINOPHILS # (AUTO) 0.7 x10^3/uL (0.0-0.2); EOSINOPHILS % (AUTO) 6.4 % (0.9-2.9); HEMATOCRIT 33.1 % (36.0-47.0); HEMOGLOBIN 11.3 g/dL (12.0-16.0); LYMPHOCYTES # (AUTO) 1.9 X10^3/uL (1.3-2.9); LYMPHOCYTES % (AUTO) 17.7 % (21.0-51.0); MEAN CORPUSCULAR HEMOGLOBIN 28.9 pg (27.0-34.0); MEAN CORPUSCULAR HGB CONC 34.2 g/dL (33.0-35.0); MEAN CORPUSCULAR VOLUME 84.4 fL (80.0-100.0); MONOCYTES # (AUTO) 1.4 x10^3/uL (0.3-0.8); MONOCYTES % (AUTO) 13.1 % (0.0-13.0); NEUTROPHILS # (AUTO) 6.7 x10^3/uL (2.2-4.8); NEUTROPHILS % (AUTO) 62.1 % (42.0-75.0); PLATELET COUNT 507 X10^3/uL (150.0-450.0); RED BLOOD COUNT 3.92 X10^6/uL (3.5-5.4); RED CELL DISTRIBUTION WIDTH 13.4 % (11.6-16.5); WHITE BLOOD COUNT 10.8 X10^3/uL (3.6-10.0)
[2017-03-30 06:35] LABS: ALANINE AMINOTRANSFERASE 19 Units/L (12-78); ALBUMIN 2.4 g/dL (3.4-5.0); ALKALINE PHOSPHATASE 58 Units/L (46-116); ASPARTATE AMINO TRANSFERASE 21 Units/L (15-37); BLOOD UREA NITROGEN 5 mg/dL (7-18); CARBON DIOXIDE 24.4 mmol/L (21-32); CHLORIDE 107 mmol/L (98-107); COR CA(FOR HYPOALB) 9.3 mg/dL (8.5-10.1); CREATININE 0.53 mg/dL (0.55-1.02); MAGNESIUM 1.5 mg/dL (1.7-2.9); SODIUM 140 mmol/L (136-145); TOTAL PROTEIN 5.5 g/dL (6.4-8.2); eGFR BLACK RACES > 60 (>60); eGFR NON BLACK RACES > 60 (>60)
[2017-03-30] MEDS: MAGNESIUM SULFATE 1 GM/100 mL PREMIX 1 GM/100 ML BAG IV PRN (07:03)
[2017-03-30] MEDS ORDERED: DULCOLAX SUPPOSITORY 10 MG RECTAL ONE (08:01)
[2017-03-30] MEDS: PEPCID 20 MG IV PREMIX* 20 MG/50 ML BAG IV SCH ×2 (08:10→20:03)
[2017-03-30] MEDS: ZESTRIL TAB 40 MG PO SCH (08:10)
[2017-03-30] MEDS: NORVASC TAB 5 MG PO SCH (08:10)
[2017-03-30] MEDS: ESTRADIOL TOP SCH (08:10)
[2017-03-30] MEDS: ZITHROMAX INJ 500 MG VIAL 500 MG in NS 250 ML IV 250 ML IV SCH (08:10)
[2017-03-30] MEDS: LOPRESSOR TAB 50 MG PO SCH ×2 (08:10→20:03)
[2017-03-30] MEDS: CIPRO IV 400 MG PREMIX* 400 MG/200 ML IV.SOLN. IV SCH ×2 (08:10→20:39)
[2017-03-30] MEDS: PriLOSEC PO SCH (08:10)
[2017-03-30] MEDS: ZOFRAN INJ 4 MG VIAL IVP PRN (19:43)
[2017-03-30] MEDS: VISTARIL PO PRN (20:39)
[2017-03-31 05:23] LABS: BASOPHILS # (AUTO) 0.1 X10^3/uL (0.0-0.1); BASOPHILS % (AUTO) 0.7 % (0.2-1.0); EOSINOPHILS # (AUTO) 0.4 x10^3/uL (0.0-0.2); EOSINOPHILS % (AUTO) 4.2 % (0.9-2.9); HEMOGLOBIN 10.9 g/dL (12.0-16.0); LYMPHOCYTES # (AUTO) 1.8 X10^3/uL (1.3-2.9); LYMPHOCYTES % (AUTO) 17.9 % (21.0-51.0); MEAN CORPUSCULAR HEMOGLOBIN 28.7 pg (27.0-34.0); MEAN CORPUSCULAR VOLUME 84.3 fL (80.0-100.0); MEAN PLATELET VOLUME 10.3 fL (7.4-11.0); MONOCYTES # (AUTO) 1.4 x10^3/uL (0.3-0.8); MONOCYTES % (AUTO) 13.6 % (0.0-13.0); NEUTROPHILS # (AUTO) 6.5 x10^3/uL (2.2-4.8); NEUTROPHILS % (AUTO) 63.6 % (42.0-75.0); PLATELET COUNT 458 X10^3/uL (150.0-450.0); RED BLOOD COUNT 3.79 X10^6/uL (3.5-5.4); RED CELL DISTRIBUTION WIDTH 13.4 % (11.6-16.5); WHITE BLOOD COUNT 10.2 X10^3/uL (3.6-10.0)
[2017-03-31 05:43] LABS: ALANINE AMINOTRANSFERASE 17 Units/L (12-78); ALBUMIN 2.3 g/dL (3.4-5.0); ALKALINE PHOSPHATASE 59 Units/L (46-116); ASPARTATE AMINO TRANSFERASE 20 Units/L (15-37); BLOOD UREA NITROGEN 5 mg/dL (7-18); CARBON DIOXIDE 23.4 mmol/L (21-32); CHLORIDE 108 mmol/L (98-107); COR CA(FOR HYPOALB) 9.4 mg/dL (8.5-10.1); CREATININE 0.53 mg/dL (0.55-1.02); SODIUM 141 mmol/L (136-145); TOTAL PROTEIN 5.4 g/dL (6.4-8.2); eGFR BLACK RACES > 60 (>60); eGFR NON BLACK RACES > 60 (>60)
--- NOTE | 2017-03-31 07:34 | RAD ---
HISTORY: Small bowel obstruction Study: KUB Comparison: 03/29/2017 Findings: Contrast is identified in the distal small bowel and colon. No significantly dilated small bowel is i dentified. No abnormal masses or abnormal calcifications are identified. IMPRESSION: Unremarkable KUB with the exception of residual contrast as described Reported By:
[2017-03-31] MEDS: NS 1000 ML 1,000 ML IV SCH ×3 (07:40→16:07)
[2017-03-31] MEDS: CIPRO IV 400 MG PREMIX* 400 MG/200 ML IV.SOLN. IV SCH ×2 (08:26→21:07)
[2017-03-31] MEDS: LOPRESSOR TAB 50 MG PO SCH ×2 (08:26→21:07)
[2017-03-31] MEDS: ZESTRIL TAB 40 MG PO SCH (08:26)
[2017-03-31] MEDS: NORVASC TAB 5 MG PO SCH (08:26)
[2017-03-31] MEDS: ESTRADIOL TOP SCH (08:26)
[2017-03-31] MEDS: PEPCID 20 MG IV PREMIX* 20 MG/50 ML BAG IV SCH ×2 (08:26→21:07)
[2017-03-31] MEDS: PriLOSEC PO SCH (08:26)
[2017-03-31] MEDS: ZITHROMAX INJ 500 MG VIAL 500 MG in NS 250 ML IV 250 ML IV SCH (08:27)
[2017-03-31] MEDS: MILK OF MAGNESIA PO PRN (21:07)
[2017-03-31] MEDS: VISTARIL PO PRN (21:07)
[2017-04-01] MEDS: NS 1000 ML 1,000 ML IV SCH ×3 (05:48→17:57)
[2017-04-01 06:03] LABS: BASOPHILS # (AUTO) 0.1 X10^3/uL (0.0-0.1); BASOPHILS % (AUTO) 0.7 % (0.2-1.0); EOSINOPHILS # (AUTO) 0.5 x10^3/uL (0.0-0.2); EOSINOPHILS % (AUTO) 5.8 % (0.9-2.9); HEMATOCRIT 33.4 % (36.0-47.0); HEMOGLOBIN 11.4 g/dL (12.0-16.0); LYMPHOCYTES # (AUTO) 1.9 X10^3/uL (1.3-2.9); LYMPHOCYTES % (AUTO) 21.1 % (21.0-51.0); MEAN CORPUSCULAR HEMOGLOBIN 28.6 pg (27.0-34.0); MEAN CORPUSCULAR HGB CONC 34.1 g/dL (33.0-35.0); MEAN CORPUSCULAR VOLUME 84.1 fL (80.0-100.0); MEAN PLATELET VOLUME 10.3 fL (7.4-11.0); MONOCYTES # (AUTO) 1.3 x10^3/uL (0.3-0.8); MONOCYTES % (AUTO) 15.1 % (0.0-13.0); NEUTROPHILS # (AUTO) 5.1 x10^3/uL (2.2-4.8); NEUTROPHILS % (AUTO) 57.3 % (42.0-75.0); PLATELET COUNT 486 X10^3/uL (150.0-450.0); RED BLOOD COUNT 3.98 X10^6/uL (3.5-5.4); RED CELL DISTRIBUTION WIDTH 13.6 % (11.6-16.5); WHITE BLOOD COUNT 8.9 X10^3/uL (3.6-10.0)
[2017-04-01 06:06] LABS: ALANINE AMINOTRANSFERASE 21 Units/L (12-78); ALBUMIN 2.4 g/dL (3.4-5.0); ALKALINE PHOSPHATASE 62 Units/L (46-116); ASPARTATE AMINO TRANSFERASE 18 Units/L (15-37); BLOOD UREA NITROGEN 4 mg/dL (7-18); CALCIUM 8.3 mg/dL (8.5-10.1); CARBON DIOXIDE 25.1 mmol/L (21-32); CHLORIDE 108 mmol/L (98-107); COR CA(FOR HYPOALB) 9.6 mg/dL (8.5-10.1); CREATININE 0.66 mg/dL (0.55-1.02); SODIUM 140 mmol/L (136-145); TOTAL PROTEIN 5.6 g/dL (6.4-8.2); eGFR BLACK RACES > 60 (>60); eGFR NON BLACK RACES > 60 (>60)
[2017-04-01] MEDS: ESTRADIOL TOP SCH (08:15)
[2017-04-01] MEDS: NORVASC TAB 5 MG PO SCH (08:15)
[2017-04-01] MEDS: LOPRESSOR TAB 50 MG PO SCH ×2 (08:15→20:28)
[2017-04-01] MEDS: CIPRO IV 400 MG PREMIX* 400 MG/200 ML IV.SOLN. IV SCH ×2 (08:15→20:28)
[2017-04-01] MEDS: ZESTRIL TAB 40 MG PO SCH (08:16)
[2017-04-01] MEDS: ZITHROMAX INJ 500 MG VIAL 500 MG in NS 250 ML IV 250 ML IV SCH (08:16)
[2017-04-01] MEDS: PriLOSEC PO SCH (08:16)
[2017-04-01] MEDS: PEPCID 20 MG IV PREMIX* 20 MG/50 ML BAG IV SCH ×2 (08:16→20:27)
[2017-04-01] MEDS: MAG-OX TAB PO PRN (13:44)
[2017-04-01] MEDS: VISTARIL PO PRN (20:28)
--- NOTE | 2017-04-01 21:16 | PCM.PROG ---
Progress Note - Progress Note for Day of Date: 03/31/17 - Subjective Subjective: WAS ADMITTED ON 03/25/17 WITH A POSSIBLE SMALL BOWEL OBSTRUCTION. SHE WAS TRANSPORTED TO [facility] FOR AN UPPER GI SERIES. IT REPORTED NEGATIVE FOR SMALL BOWEL OBSTRUCTION, HOWEVER, DID REPORT A MODERATE AMOUNT OF STOOL IN COLON. TODAY, SHE IS ALERT AND ORIENTED, LYING IN BED ON MORNING ROUNDS. SHE CONTINUES WITH COMPLAINTS OF MILD ABDOMINAL PAIN, BUT REPORTS THAT IT HAS IMPROVED SOME SINCE YESTERDAY. SHE REPORTS A LARGE BOWEL MOVEMENT LAST NIGHT. HER VITAL SIGNS THIS MORNING ARE 98.1-82-20-92% -180/75. LABS AND KUB WERE OBTAINED. ABNORMAL LAB VALUES INCLUDE THE FOLLOWING: WBC 10.2, HGB 10.9, HCT 32.0, CHLORIDE 108, BUN 5, CREATININE 0.53, CALCIUM 8.0 , TOTAL PROTEIN 5.4, ALBUMIN 2.4. KUB IS NEGATIVE. TODAY, WE WILL CONTINUE WITH CURRENT PLAN OF CARE AND CONTINUE ON MILK OF MAGNESIA AND COLACE NEEDED. OTHERWISE, WE WILL FOLLOW UP WITH AM LABS AND CONTINUE TO MONITOR PATIENT. - Past Medical Family Social History Past Med/Fam/Surg Hx: No changes since H&P Allergies: Allergies codeine Allergy (Verified 03/25/17 12:16) penicillin G Allergy (Verified 03/25/17 12:16) - Review of Systems ROS: No change since H&P - Vital Signs and I&O's Vital Signs: Temperature 98.2 F Pulse Rate [Left] 85 Pulse Rate [Right Brachial] 82 Pulse Rate 88 Respiratory Rate 20 Blood Pressure [Right Arm] 126/74 Blood Pressure [Left Arm] 162/74 Blood Pressure 126/63 O2 Sat by Pulse Oximetry 95 Intake and Output: Intake & Output 03/30/17 03/31/17 04/01/17 04/02/17 11:59 11:59 11:59 11:59 Intake Total 2840 0 2900 760 Output Total 500 2200 Balance 2340 0 700 760 - Physical Exam Oriented: Normal Eyes: Normal Ear: Normal Throat: Normal Respiratory: Normal Cardiovascular: Normal Auscultation: Bowel Sounds: Decreased Tenderness: Diffuse Skin: Decreased Turgur Musculoskeletal: Normal Psychiatric: Normal Mood Description: Calm Affect: Normal Speech Pattern: Clear, Appropriate - Laboratory and Diagnostics Result Diagrams: 04/01/17 03:38 04/01/17 03:38 Labs: 03/25/17 14:46 Urine,Clean Catch Urine Culture - Final Pseudomonas Aeruginosa Laboratory WBC 8.9 X10^3/uL (3.6-10.0) 04/01/17 03:38 RBC 3.98 X10^6/uL (3.5-5.4) 04/01/17 03:38 Hgb 11.4 g/dL (12.0-16.0) L 04/01/17 03:38 Hct 33.4 % (36.0-47.0) L 04/01/17 03:38 MCV 84.1 fL (80.0-100.0) 04/01/17 03:38 MCH 28.6 pg (27.0-34.0) 04/01/17 03:38 MCHC 34.1 g/dL (33.0-35.0) 04/01/17 03:38 RDW 13.6 % (11.6-16.5) 04/01/17 03:38 Plt Count 486 X10^3/uL (150.0-450.0) H 04/01/17 03:38 MPV 10.3 fL (7.4-11.0) 04/01/17 03:38 Neut % 57.3 % (42.0-75.0) 04/01/17 03:38 Lymph % 21.1 % (21.0-51.0) 04/01/17 03:38 [place] % 15.1 % (0.0-13.0) H 04/01/17 03:38 Eos % 5.8 % (0.9-2.9) H 04/01/17 03:38 Baso % 0.7 % (0.2-1.0) 04/01/17 03:38 Neut # 5.1 x10^3/uL (2.2-4.8) H 04/01/17 03:38 Lymph # 1.9 X10^3/uL (1.3-2.9) 04/01/17 03:38 [place] # 1.3 x10^3/uL (0.3-0.8) H 04/01/17 03:38 Eos # 0.5 x10^3/uL (0.0-0.2) H 04/01/17 03:38 Baso # 0.1 X10^3/uL (0.0-0.1) 04/01/17 03:38 Absolute Nucleated RBC 0.2 /100WBC 04/01/17 03:38 Sodium 140 mmol/L (136-145) 04/01/17 03:38 Corrected Sodium TNP 04/01/17 03:38 Potassium 3.7 mmol/L (3.5-5.1) 04/01/17 03:38 Chloride 108 mmol/L (98-107) H 04/01/17 03:38 Carbon Dioxide 25.1 mmol/L (21-32) 04/01/17 03:38 BUN 4 mg/dL (7-18) L 04/01/17 03:38 Creatinine 0.66 mg/dL (0.55-1.02) 04/01/17 03:38 Est GFR (MDRD) Af Amer > 60 (>60) 04/01/17 03:38 Est GFR (MDRD) Non-Af > 60 (>60) 04/01/17 03:38 Glucose 95 mg/dL (65-99) 04/01/17 03:38 Calcium 8.3 mg/dL (8.5-10.1) L 04/01/17 03:38 Corrected Calcium 9.6 mg/dL (8.5-10.1) 04/01/17 03:38 Magnesium 1.9 mg/dL (1.7-2.9) 04/01/17 03:38 Total Bilirubin 0.20 mg/dL (0.2-1.0) 04/01/17 03:38 AST 18 Units/L (15-37) 04/01/17 03:38 ALT 21 Units/L (12-78) 04/01/17 03:38 Alkaline Phosphatase 62 Units/L (46-116) 04/01/17 03:38 Total Protein 5.6 g/dL (6.4-8.2) L 04/01/17 03:38 Albumin 2.4 g/dL (3.4-5.0) L 04/01/17 03:38 Globulin 3.2 g/dL (2.5-4.5) 04/01/17 03:38 Albumin/Globulin Ratio 0.8 Ratio (1.1-2.1) L 04/01/17 03:38 Amylase 35 Units/L (25-115) 03/25/17 12:52 Lipase 185 Units/L (73-393) 03/25/17 12:52 Specimen Type Clean catch urine 03/25/17 14:46 Urine Color Yellow (YELLOW) 03/25/17 14:46 Urine Appearance Hazy (CLEAR) 03/25/17 14:46 Urine pH 8.0 (5.0 - 8.0) 03/25/17 14:46 Ur Specific [place] 1.015 (1.000-1.030) 03/25/17 14:46 Urine Protein 1+ (NEGATIVE) 03/25/17 14:46 Urine Glucose (UA) Negative (NEGATIVE) 03/25/17 14:46 Urine Ketones Negative (NEGATIVE) 03/25/17 14:46 Urine Occult Blood 1+ (NEGATIVE) 03/25/17 14:46 Urine Nitrite Positive (NEGATIVE) 03/25/17 14:46 Urine Bilirubin 1+ (NEGATIVE) 03/25/17 14:46 Urine Urobilinogen 2+ (NORMAL) 03/25/17 14:46 Ur Leukocyte Esterase 1+ (NEGATIVE) 03/25/17 14:46 Urine RBC 3-5 /HPF (NEGATIVE) 03/25/17 14:46 Urine WBC 10-12 /HPF (NEGATIVE) 03/25/17 14:46 Ur Squamous Epith Cells Rare /HPF (NEGATIVE) 03/25/17 14:46 Urine Bacteria 3+ /HPF (NEGATIVE) 03/25/17 14:46 Ur Culture Indicated? Yes/culture set up 03/25/17 14:46 H. pylori IgG Antibody Positive (NEGATIVE) A 03/25/17 12:52 - Plan (1) Abdominal pain Status: Acute Qualifiers: Abdominal location: generalized Qualified Code(s): R10.84 - Generalized abdominal pain Plan: CONTINUE PAIN MEDICATION, CONTINUE BOWEL REGIMEN, CONTINUE TO MONITOR
[2017-04-02] MEDS: NS 1000 ML 1,000 ML IV SCH ×2 (01:26→08:49)
[2017-04-02 04:49] LABS: BASOPHILS # (AUTO) 0.1 X10^3/uL (0.0-0.1); EOSINOPHILS # (AUTO) 0.4 x10^3/uL (0.0-0.2); EOSINOPHILS % (AUTO) 5.3 % (0.9-2.9); HEMATOCRIT 34.6 % (36.0-47.0); HEMOGLOBIN 11.8 g/dL (12.0-16.0); LYMPHOCYTES # (AUTO) 1.7 X10^3/uL (1.3-2.9); LYMPHOCYTES % (AUTO) 19.9 % (21.0-51.0); MEAN CORPUSCULAR HEMOGLOBIN 28.7 pg (27.0-34.0); MEAN CORPUSCULAR HGB CONC 34.1 g/dL (33.0-35.0); MEAN CORPUSCULAR VOLUME 84.1 fL (80.0-100.0); MEAN PLATELET VOLUME 10.2 fL (7.4-11.0); MONOCYTES # (AUTO) 1.2 x10^3/uL (0.3-0.8); MONOCYTES % (AUTO) 14.1 % (0.0-13.0); NEUTROPHILS # (AUTO) 5.1 x10^3/uL (2.2-4.8); NEUTROPHILS % (AUTO) 59.7 % (42.0-75.0); PLATELET COUNT 513 X10^3/uL (150.0-450.0); RED BLOOD COUNT 4.12 X10^6/uL (3.5-5.4); RED CELL DISTRIBUTION WIDTH 13.5 % (11.6-16.5); WHITE BLOOD COUNT 8.6 X10^3/uL (3.6-10.0)
[2017-04-02 05:02] LABS: ALANINE AMINOTRANSFERASE 19 Units/L (12-78); ALBUMIN 2.7 g/dL (3.4-5.0); ALKALINE PHOSPHATASE 69 Units/L (46-116); ASPARTATE AMINO TRANSFERASE 15 Units/L (15-37); BLOOD UREA NITROGEN 4 mg/dL (7-18); CALCIUM 8.4 mg/dL (8.5-10.1); CARBON DIOXIDE 23.1 mmol/L (21-32); CHLORIDE 106 mmol/L (98-107); COR CA(FOR HYPOALB) 9.4 mg/dL (8.5-10.1); CREATININE 0.61 mg/dL (0.55-1.02); SODIUM 140 mmol/L (136-145); TOTAL PROTEIN 6.2 g/dL (6.4-8.2); eGFR BLACK RACES > 60 (>60); eGFR NON BLACK RACES > 60 (>60)
[2017-04-02] MEDS: MILK OF MAGNESIA PO PRN (08:47)
[2017-04-02] MEDS: ESTRADIOL TOP SCH (08:48)
[2017-04-02] MEDS: PriLOSEC PO SCH (08:48)
[2017-04-02] MEDS: LOPRESSOR TAB 50 MG PO SCH (08:48)
[2017-04-02] MEDS: ZESTRIL TAB 40 MG PO SCH (08:48)
[2017-04-02] MEDS: NORVASC TAB 5 MG PO SCH (08:48)
[2017-04-02] MEDS: PEPCID 20 MG IV PREMIX* 20 MG/50 ML BAG IV SCH (08:49)
[2017-04-02] MEDS: CIPRO IV 400 MG PREMIX* 400 MG/200 ML IV.SOLN. IV SCH (08:49)
[2017-04-02] MEDS: ZITHROMAX INJ 500 MG VIAL 500 MG in NS 250 ML IV 250 ML IV SCH (08:49)
[2017-04-02] MEDS ORDERED: LEVSIN/MAALOX/LIDOC VISC PO ONE (11:39)
[2017-04-02] MEDS ORDERED: PROTONIX INJ 40 MG VIAL IVP SCH (12:00)
[2017-04-02] MEDS ORDERED: MIRALAX POWDER (1 DOSE 17GM) PO SCH (12:00)
[2017-04-02] MEDS ORDERED: MILK OF MAGNESIA PO SCH (13:00)
[2017-04-02] MEDS ORDERED: DULCOLAX SUPPOSITORY 10 MG RECTAL ONE (15:00)
[2017-04-02 16:37] VITALS: BP 143/88
[2017-04-02] MEDS ORDERED: COLACE CAP 100 MG PO SCH (21:00)
== END 2017-04-02 16:45 | disposition home health service (06) | DRG 392 ==
LOC: ER 12:41 → MED/SURG 14:44
PROVIDERS: ADMIT Internal Medicine; ATTEND Internal Medicine
PROC: 0D9670Z Drainage of Stomach with Drainage Device, Via Natural or Artificial Opening (ICD-10-PCS; principal; 2017-03-25)
DX: R10.84 Generalized abdominal pain (principal); K56.690 Other partial intestinal obstruction; R11.2 Nausea with vomiting, unspecified; M54.5 Low back pain; K59.09 Other constipation; E78.2 Mixed hyperlipidemia; I10 Essential (primary) hypertension; B96.5 Pseudomonas (aeruginosa) (mallei) (pseudomallei) as the cause of diseases classified elsewhere; B96.81 Helicobacter pylori [H. pylori] as the cause of diseases classified elsewhere
CPT/HCPCS: 36415; 43753; 74000; 74018; 74022; 74176; 80053; 81001; 82150; 83690; 83735; 84132; 85025; 86677; 87086; 87088; 87186; 96365; 96367; 96374; 96375; 99283; 99284; A4222; C9113; Q0177; S0028; J0456; J0744; J2175; J2405; J2550; J3480